=== PATIENT | female | born 1980 | race Caucasian/White ===

== ENCOUNTER 2019-06-11 09:41 | Outpatient (CLI) | payer OTHER, SELFPAY ==
--- NOTE | ~2019-06-11 | XR_ITS ---
EXAMINATION: XR lumbar puncture diagnostic DATE: 06/11/2019 11:58 INDICATION: Multiple sclerosis. TECHNIQUE: The procedure including the risks, benefits, and alternatives was discussed with the patie nt. Risks discussed included spinal headache, cerebrospinal fluid leak, bleeding, and infection. The patient understood the risks and agreed to proceed. A timeout was performed to verify the patient' s name, date of , and procedure to be performed. The skin overlying the L2-L3 level was prepped and draped in usual sterile fashion. Subcutaneous 1% lidocaine was used for local anesthesia. A 20 gauge spinal needle was advanced under fluoroscopic guidance. The needle was removed and the entry s ite was cleaned and dressed. There were no immediate complications. Fluoroscopy exposure time was 0. 1 minutes. The total number of images was 1. FINDINGS: Real-time fluoroscopy demonstrates the needle at the L2-L3 level. The opening pressure was 24 cm water (Normal range is variably defined as 6-20 cm water and up to 25 cm water in obese patient s. Pressure >25 cm water is one of the modified Dandy criteria for idiopathic intracranial hypertensi on). 14 mL of clear, colorless fluid was collected in 4 tubes. IMPRESSION: 1. Successful fluoro-guided lumbar puncture with opening pressure of 24 cm water. Reviewed, dictated and finalized at location A. EMS SPEC IMPRESSION: 1. Successful fluoro-guided lumbar puncture with opening pressure of 24 cm citlalye geovani
[2019-06-11 10:31] LABS: Mean Platelet Volume 9.6 fl (7.4-10.4); Platelet Count Result 346 k/mm3 (150-375)
[2019-06-11 10:41] LABS: Prothrombin Time 12.7 Seconds (11.1-14.7)
[2019-06-11 11:05] VITALS: BP 116/80; PULSE 85; RESP 17; O2SAT 98
[2019-06-11 11:25] VITALS: BP 120/79; PULSE 77; RESP 17; O2SAT 98
[2019-06-11 12:04] LABS: Appearance CSF Clear (Clear); CSF source CSF; Color CSF Colorless (Colorless); Nucleated Cell CSF 10 /uL (0-5); Red Blood Cell CSF 13 (0-2)
[2019-06-11 12:08] LABS: Lymphocytes CSF 100 % (40-80)
[2019-06-11 12:24] LABS: Glucose CSF 53 mg/dL (40-70); Total Protein CSF 40 mg/dL (12-60)
[2019-06-13 04:19] LABS: Angiotensin Converting Enzyme 35 U/L (9-67)
[2019-06-15 06:11] LABS: Albumin, CSF 18.8 mg/dL (8.0-42.0); Albumin, Serum 4.2 g/dL (3.5-5.2); IgG Index, CSF 0.96 (<0.66); IgG, CSF 4.8 mg/dL (0.8-7.7); Immunoglobulin G, Serum 1120 mg/dL (600-1640); Myelin Basic Protein, CSF <2.0 mcg/L (2.0-4.0)
[2019-06-17 11:24] LABS: Angiotensi Converting Enzy CSF 7 U/L (<=15)
== END 2019-06-11 09:42 | disposition home or self-care (01) ==
PROVIDERS: Visit Provider Psychiatry & Neurology Neurology
DX: G35 Multiple sclerosis (principal)
CPT/HCPCS: 36415; 62328; 82040; 82042; 82164; 82784; 82945; 83873; 83916; 84157; 85049; 85610; 87070; 88108; 89051

== ENCOUNTER 2021-10-07 08:05 | Emergency (ER) | payer OTHER, SELFPAY ==
--- NOTE | 2021-10-07 08:06 | ED.LOWEXIN ---
HPI - Extremity Injury (Lower) General Chief Complaint: Extremity Injury, Upper Stated Complaint: right knee popped Time Seen by Provider: 10/07/21 08:06 Source: patient Mode of arrival: ambulatory Limitations: no limitations History of Present Illness HPI Narrative: Ms. Warren is a 41-year-old female patient presenting to the clinic today with complaints of right knee pain/popping. She reports that her right knee pop last night after squatting down. States that she felt as though her knee popped out of place last night but that it popped back in. Has pain over the medial collateral ligament. Has some pain with weightbearing but worse with walking. Related Data Home Medications Medication Instructions Recorded Confirmed ibuprofen 800 mg tablet 800 mg PO Q6H PRN Pain 05/25/19 10/07/21 Allergies Allergy/AdvReac Type Severity Reaction Status Date / Time No Known Allergies Allergy Mild Verified 10/07/21 08:16 Review of Systems Review of Systems: Pertinent positives per HPI. Patient denies any fever, chills, rash, headache, visual changes, dizziness, cough, runny nose, sore throat, shortness of breath, chest pain, palpitations, nausea, vomiting, diarrhea, constipation, abdominal pain, or any urinary issues. PMFSH Social History Social History Smoking status: Current every day smoker Comments At the time of my signature, I reviewed and agree with the nursing past medical, surgical, social, and family history. There is no relevant family history pertinent to the patient complaint. Exam Narrative: General: Well-developed, well nourished, in no apparent distress Head: Normocephalic, atraumatic. Cardio: Regular rate and rhythm, s1 and s2 normal, no murmur appreciated. Resp: Clear to auscultation bilaterally, no rhonchi, rales, wheezing or rubs. Musculoskeletal: No deformity, tender to palpation over the right MCL, pain with flexion over the MCL, grossly normal range of motion, tenderness over the MCL with valgus/varus testing, muscle strength strong and equal, peripheral pulse strong, mild swelling to the right knee when compared to the left knee, no cyanosis, normal gait and station Course Course Emergency Course: Portions of this record may have been created with voice recognition software. Level of Care: Express Care Visit Vital Signs Vital signs: Vital signs reviewed MDM - Extremity Injury (Lower) MDM Narrative Medical decision making narrative: At the time of visit patient is resting comfortably sitting in the wheelchair. She has tenderness to palpation over the MCL with pain with flexion and extension over the MCL. Knee exam is negative for any signs of tear as anterior/posterior/valgus and varus testing are all negative for laxity. I suspect that the patient has an MCL sprain and will give a Raúl wrap and supportive measures were discussed. I recommend a hinged knee brace as this will give support for walking and weightbearing activity. Patient voiced understanding of discharge instructions and agrees to the treatment plan. I will also give her a prescription for some prednisone to help with swelling and inflammation. Differential Diagnosis Differential diagnosis: Likely acute internal derangement of knee and other (Right knee MCL sprain, medial meniscus tear, MCL tear) Discharge Plan Discharge Clinical Impression: Knee MCL sprain Patient Disposition: Home, Self-Care Condition: Stable Instructions: Knee Sprain (ED) Additional Instructions: Rest, ice, elevate, and compress Wear Raúl wrap as discussed May benefit from using a hinged knee brace with weightbearing and ambulating Tylenol/Motrin as needed for pain Take prednisone as prescribed Follow-up with your PCP in 3 to 5 days if symptoms persist or sooner if they worsen. May need MRI to rule out tendon tear or medial meniscus tear. Prescriptions: New prednisone
[2021-10-07 08:11] VITALS: BP 105/73; PULSE 90; RESP 14; TEMP 37; O2SAT 100
== END 2021-10-07 08:45 | disposition home or self-care (01) ==
PROVIDERS: Emergency Provider Nurse Practitioner Family
DX: S83.411A Sprain of medial collateral ligament of right knee, initial encounter (principal); X50.9XXA Other and unspecified overexertion or strenuous movements or postures, initial encounter; F17.200 Nicotine dependence, unspecified, uncomplicated; G35 Multiple sclerosis
CPT/HCPCS: 99213; G0463

== ENCOUNTER 2022-05-12 14:51 | Outpatient (CLI) | payer OTHER, SELFPAY ==
[2022-05-12 15:08] LABS: Basophils Absolute Auto 0.08 K/mm3 (0.00-0.10); Basophils Percent Auto 1.2 % (0.0-1.0); Eosinophils Absolute Auto 0.15 K/mm3 (0.02-0.50); Eosinophils Percent Auto 2.3 % (1.0-6.0); Hematocrit 41.9 % (35.0-49.0); Hemoglobin 14.8 g/dL (12.0-15.0); Immature Granulocyte Absolute 0.02 K/mm3 (0.00-0.00); Immature Granulocyte Percent A 0.3 % (0.0-0.0); Lymphocytes Absolute Auto 2.07 K/mm3 (1.10-4.50); Mean Corpuscular HGB Conc 35.3 g/dL (32.0-36.0); Mean Corpuscular Hemoglobin 33.9 pg (27.0-31.0); Mean Corpuscular Volume 95.9 fL (78.0-102.0); Mean Platelet Volume 9.6 fl (9.2-11.8); Monocytes Absolute Auto 0.41 K/mm3 (0.10-0.90); Monocytes Percent Auto 6.3 % (2.0-11.0); Neutrophils Absolute Auto 3.7 K/mm3 (1.7-7.2); Neutrophils Percent Auto 57.9 % (50.0-70.0); Platelet Count Result 340 K/mm3 (150-420); Red Blood Count 4.37 M/mm3 (4.20-5.40); Red Cell Distribution Width 11.6 % (11.6-14.4); White Blood Count 6.5 K/mm3 (4.8-10.8)
--- NOTE | 2022-05-12 15:23 | ECG_ITS ---
Measurements Intervals [place] Rate: 79 P: 59 [place]: 139 QRS: 42 QRSD: 76 T: 48 QT: 353 QTc: 406 Interpretive Statements SINUS RHYTHM POSSIBLE RIGHT ATRIAL ENLARGEMENT BORDERLINE ECG NO PREVIOUS ECG AVAILABLE FOR COMPARISON Electronically Signed On 05-12-2022 16:00:56 MECHANICAL SOUND TECHNICIAN by Joel Green D.O.
[2022-05-12 15:38] LABS: Alanine Aminotransferase 17 U/L (14-59); Albumin Level 4.1 g/dL (3.4-5.0); Alkaline Phosphatase 52 U/L (46-116); Anion Gap 9 mmol/L (8-16); Aspartate Amino Transferase 11 U/L (15-37); Bilirubin,Total 0.5 mg/dL (0.00-1.00); Blood Urea Nitrogen 7 mg/dL (7-18); Carbon Dioxide 26 mmol/L (21-32); Chloride 102 mmol/L (98-108); Estimated Glomerular Filt Rate > 60; Glucose 90 mg/dL (70-99); Osmolality Calculated 282 mOsm/kg (285-295); Potassium 4.3 mmol/L (3.5-5.1); Sodium 137 mmol/L (136-145); Total Protein 7.4 g/dL (6.4-8.2)
[2022-05-17 18:39] LABS: Varicella IgM Antibody <=0.90 (<=0.90)
== END 2022-05-12 14:52 | disposition home or self-care (01) ==
PROVIDERS: PCP Student in an Organized Health Care Education/Training Program; Visit Provider Student in an Organized Health Care Education/Training Program
DX: G35 Multiple sclerosis (principal)
CPT/HCPCS: 36415; 80053; 85025; 86787; 93005

== ENCOUNTER 2022-07-15 14:18 | Outpatient (CLI) | payer OTHER, SELFPAY ==
--- NOTE | ~2022-07-15 | MM_ITS ---
EXAMINATION: MM screening mikayla BI w alexis HISTORY: Screening mammogram TECHNIQUE: Craniocaudal and mediolateral oblique 3-D tomosynthesis images were obtained and synthetic 2-D images were generated. CAD analysis was submitted and interpreted. COMPARISON: No prior mammogram is available for comparison at this institution. BREAST PARENCHYMAL COMPOSITION:There are scattered areas of fibroglandular density. FINDINGS: Benign lymph nodes noted at the upper, outer left breast. No suspicious mass, calcification , or architectural distortion are identified in either breast to suggest malignancy. There has been n o suspicious interval change. IMPRESSION: No mammographic evidence of malignancy. Recommend routine screening mammography in one year. BI-RADS Category 2: Benign finding(s). Reviewed, dictated and finalized at location .
== END 2022-07-15 14:19 | disposition home or self-care (01) ==
LOC: CHSIMG 14:19
PROVIDERS: Visit Provider Obstetrics & Gynecology
DX: Z12.31 Encounter for screening mammogram for malignant neoplasm of breast (principal)
CPT/HCPCS: 77063; 77067

== ENCOUNTER 2023-02-12 09:40 | Outpatient (CLI) | payer OTHER, SELFPAY ==
--- NOTE | ~2023-02-12 | MR_ITS ---
EXAMINATION: MR cervical spine wo/w con DATE: 02/12/2023 10:54 INDICATION: Multiple sclerosis. TECHNIQUE: Magnetic resonance imaging (MRI) of the cervical spine was performed without and with 16 m L MultiHance intravenous contrast. COMPARISON: None FINDINGS: There is 5 degrees levocurvature of cervicothoracic spine. There is hypolordosis of cervica l spine. Vertebral body heights and intervertebral disc heights are normal. There is a lesion of incr eased T2-weighted signal intensity in the spinal cord on the left at C2-C3. There is a lesion of incr eased T2-weighted signal intensity in the spinal cord on the right at C4-C5. No contrast enhancement. The following disc levels are specifically discussed: C2-C3: The disc does not extend beyond the endplate margin. There is no uncovertebral joint osteoarth ritis. There is mild left facet joint osteoarthritis. There is no neural foraminal stenosis. There is no central canal stenosis. C3-C4: The disc does not extend beyond the endplate margin. There is mild left uncovertebral joint os teoarthritis. There is no facet joint osteoarthritis. There is no neural foraminal stenosis. There is no central canal stenosis. C4-C5: The disc does not extend beyond the endplate margin. There is no uncovertebral joint osteoarth ritis. There is mild bilateral facet joint osteoarthritis. There is no neural foraminal stenosis. The re is no central canal stenosis. C5-C6: The disc does not extend beyond the endplate margin. There is mild left uncovertebral joint os teoarthritis. There is no facet joint osteoarthritis. There is no neural foraminal stenosis. There is no central canal stenosis. C6-C7: There is a central protrusion. There is no uncovertebral joint osteoarthritis. There is no fac et joint osteoarthritis. There is no neural foraminal stenosis. There is no central canal stenosis. C7-T1: The disc does not extend beyond the endplate margin. There is no uncovertebral joint osteoarth ritis. There is moderate right and mild left facet joint osteoarthritis. There is mild right neural f oraminal stenosis. There is no central canal stenosis. IMPRESSION: 1. Spinal cord lesions, consistent with multiple sclerosis. 2. Mild cervical spondylosis. Reviewed, dictated and finalized at location A.
== END 2023-02-12 09:41 | disposition home or self-care (01) ==
PROVIDERS: Visit Provider Student in an Organized Health Care Education/Training Program
DX: G35 Multiple sclerosis (principal); M47.892 Other spondylosis, cervical region
CPT/HCPCS: 72156; A9577

== ENCOUNTER 2023-02-13 09:38 | Outpatient (CLI) | payer OTHER, SELFPAY ==
--- NOTE | ~2023-02-13 | MR_ITS ---
EXAMINATION: MR brain/brain stem wo/w con DATE: 02/13/2023 10:46 INDICATION: Multiple sclerosis. TECHNIQUE: Magnetic resonance imaging (MRI) of the brain and brainstem was performed without and with 16 mL MultiHance intravenous contrast. COMPARISON: None. FINDINGS: There is increased T2-weighted signal intensity in the right peritrigonal white matter asso ciated with brain volume loss. There are a few other scattered lesions of increased T2-weighted signa l intensity involving the cerebral white matter with a periventricular predominance. There are lesion s of increased T2-weighted signal intensity in right cerebral peduncle and the right side of the damaso . There is no abnormal contrast enhancement. There is no intracranial hemorrhage or acute ischemic in farct. There is mild ex vacuo dilatation of trigone of right lateral ventricle. The orbits are normal . The mastoid air cells are normal. There is mild mucosal thickening in the ethmoid sinuses. IMPRESSION: 1. White matter lesions, consistent with multiple sclerosis. Reviewed, dictated and finalized at location A.
== END 2023-02-13 09:39 | disposition home or self-care (01) ==
PROVIDERS: Visit Provider Student in an Organized Health Care Education/Training Program
DX: G35 Multiple sclerosis (principal)
CPT/HCPCS: 70553; A9577

== ENCOUNTER 2023-02-19 09:05 | Outpatient (CLI) | payer OTHER, SELFPAY ==
--- NOTE | ~2023-02-19 | MR_ITS ---
MRI of the thoracic spine Clinical History: Multiple sclerosed Technique: Axial T2-weighted and gradient images, and sagittal T1-weighted, T2-weighted, and STIR armida ges were acquired. Following intravenous administration of 10 cc MultiHance gadolinium, T1-weighted f at-sat imaging was performed in the axial and sagittal planes. Findings: There is no fracture or subluxation of the thoracic spine. Vertebral bodies maintain normal height and alignment. No bone marrow signal abnormality seen. No disc bulge or herniation identified in the thoracic spine. No spinal canal stenosis or cord compre ssion identified. No epidural mass or collection seen. No abnormal signal seen in the spinal cord itself. Paravertebral soft tissues are unremarkable. No ab normal postcontrast enhancement. Impression: No significant abnormality seen. Reviewed, dictated and finalized at [facility] [place]. Impression: No significant abnormality seen.
== END 2023-02-19 09:06 | disposition home or self-care (01) ==
LOC: CHSIMG 09:06
PROVIDERS: Visit Provider Student in an Organized Health Care Education/Training Program
DX: G35 Multiple sclerosis (principal)
CPT/HCPCS: 72157; A9577

== ENCOUNTER 2023-03-07 15:56 | Outpatient (RCR) | payer OTHER, SELFPAY ==
--- NOTE | 2023-03-08 08:19 | OPREHPOC ---
Outpatient Therapy Plan of Care This is a Multidisciplinary Plan of Care that may contain components documented by all disciplines (PT, OT, and ST.) PT Problem 1 PT Problem #1 Knowledge Deficit PT Goal 1 Goal Patient to demonstrate independence with HEP Target Visit 6 PT Problem 2 PT Problem #2 Impaired Range of Motion PT Goal 1 Goal Patient to demonstrate 140 deg of active L knee flexion to improve ability to navigate stairs Target Visit 12 PT Problem 3 PT Problem #3 Impaired Strength PT Goal 1 Goal Patient to demonstrate 5/5 L hip flexion and knee strength to return to prolonged ambulation at PLOF Target Visit 12 PT Problem 4 PT Problem #4 Impaired Functional Mobil PT Goal 1 Goal 1. Patient to report ability to get into vehicle without use of UE to lift L LE into car. 2. Patient to complete 6 min walk test with no seated rest breaks 3. Patient to ambulation with no AD and adequate knee flexion through swing phase to decrease toe drag Target Visit 12
--- NOTE | 2023-03-08 08:20 | PTOPEVAL1 ---
Assessment and note entered by Irma Hilliard DPT Evaluation Information Assessment Status Evaluation Diagnosis balance, L LE weakness Onset 02/24/23 Subjective Information Patient reports she was diagnosed with MS in May. She reports she has progressively gotten weaker and her balance has decreased. She reports she uses a cane or a rollator outside of the home. She has had one fall about a year ago. She reports her L LE is weaker than R and she has decreased balance. She also reports she feels like her core is weak. She reports difficulty with getting into bed, walking, stair navigation, and heavy house hold tasks. Reported Pain Level Pain Score 0: Self Report Pain Score 0: Self Report Assessment PT Clinical Summary Patient is a 42 year old female who presents to PT with L LE weakness and impaired balance. Patient demonstrates decreased L LE strength, impaired balance and impaired gait mechanincs impairing her ability to ambulate, complete house hold tasks and navigate steps. She would benefit from skilled PT to address impairments and return to PLOF. Plan of Care Interventions Gait Training,Hot Pack/Cold Pack,Manual Therapy, Mechanical Traction,Neuro Re-education,Patient/ Caregiver Educati,Therapeutic Activities, Therapeutic Exercise PT Services Indicated Yes Treatment Frequency and 2x weekly for 12 visits Duration These treatments will address the objective and functional deficits as defined above. The patient will be advanced safely and appropriately in order for the patient to progress towards his/her prior level of function. Additional exercises will be introduced and as well as a comprehensive home exercise program upon discharge, if needed, ?to ensure carryover of functional gains achieved in the clinic. This treatment plan has been reviewed and agreement upon by the patient.
--- NOTE | 2023-03-11 10:58 | BUOTOPEVAL ---
Assessment and note entered by Rody Lewis OT Evaluation Information Assessment Status Evaluation Diagnosis Multiple sclerosis Onset 02/24/23 Subjective Information The patient stated that she gets discouraged from not being able to use her L hand and it has taken a huge toll on her everyday life. The patient reports severe fatigue following a work day and in spaces where there is a lot of lights and loud noises. She stated she needs help with homemaking tasks and caring for her children due to fatigue. 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 Reported Pain Level Pain Score 0: Self Report Pain Score 0: Self Report Assessment OT Clinical Summary The patient is a 42 year old female who was referred to outpatient OT due to multiple sclerosis resulting in L sided weakness and low endurance. The patient demonstrates severely impaired fine motor coordination, AROM of L UE, machine assistant/pinch strength, and minimal edema of L hand which affect her ability to perform work tasks, engage in caring for family and performing ADLs. The patient demonstrates significant weakness and endurance deficits in L UE and in overall activity tolerance. The patient requires skilled OT to address these deficits and improve ability to perform daily tasks with maximal amount of independence. Plan of Care Interventions Therapeutic Exercise,Manual Therapy,Neuro Re- education,Therapeutic Activities,Hot Pack/Cold Pack,Electrical Stimulation,Sensory Integrative Techn,Self-Care/Home Management OT Services Indicated Yes Treatment Frequency and 2x/week for 10 visits. Duration These treatments will address the objective and functional deficits as defined above. The patient will be advanced safely and appropriately in order for the patient to progress towards his/her prior level of function. Additional exercises will be introduced and as well as a comprehensive home exercise program upon discharge, if needed, ?to ensure carryover of functional gains achieved in the clinic. This treatment plan has been reviewed and agreement upon by the patient.
--- NOTE | 2023-04-22 11:09 | OPREHPOC ---
Outpatient Therapy Plan of Care This is a Multidisciplinary Plan of Care that may contain components documented by all disciplines (PT, OT, and ST.) PT Problem 1 PT Problem #1 Knowledge Deficit PT Goal 1 Goal Patient to demonstrate independence with HEP Target Visit 6 Progress Met PT Problem 2 PT Problem #2 Impaired Range of Motion PT Goal 1 Goal Patient to demonstrate 140 deg of active L knee flexion to improve ability to navigate stairs Target Visit 12 Progress Met PT Problem 3 PT Problem #3 Impaired Strength PT Goal 1 Goal Patient to demonstrate 5/5 L hip flexion and knee strength to return to prolonged ambulation at PLOF Target Visit 12 Progress Partially Met PT Problem 4 PT Problem #4 Impaired Functional Mobil PT Goal 1 Goal 1. Patient to report ability to get into vehicle without use of UE to lift L LE into car. 2. Patient to complete 6 min walk test with no seated rest breaks 3. Patient to ambulation with no AD and adequate knee flexion through swing phase to decrease toe drag Target Visit 12 Progress Met OT Problem 1 OT Problem #1 Knowledge Deficit OT Goal 1 Goal The patient will demonstrate 100% knowledge and demonstration of UE HEP in order to improve and maintain UE strength. Target Visit 10 OT Problem 2 OT Problem #2 Impaired Strength OT Goal 1 Goal The patient will demonstrates increase mcat tutor/pinch strength demonstrating >20 lbs of mcat tutor strength of L hand and >3 lbs of lateral pinch strength of L hand in order to open and close hand to manipulate items throughout her day. Target Visit 10 OT Goal 2 Goal The patient will demonstrate increased UE strength of L arm by demonstrating 4+/5 strength of L elbow flexion/extension and internal/external rotation of shoulder needed to lift items to care for her family. Target Visit 10 OT Problem 3 OT Problem #3 Impaired Range of Motion
--- NOTE | 2023-04-22 11:10 | PTOPDC ---
Assessment and note entered by Irma Hilliard DPT Evaluation Information Assessment Status Re-evaluation Diagnosis balance, L LE weakness Onset 02/24/23 Subjective Information Patient reports she has noticed improved walking since start of PT. She reports she has not been using an AD. She reports she has been independent with HEP. Reported Pain Level Pain Score 0: Self Report Assessment PT Clinical Summary Mrs. Warren has been seen for 10 visits of skilled PT with all goals met or partially met. She has been able to return to ambulating without AD and had not had any falls since start of care. She reports she has been independent with HEP. She is appropriate for DC at this time. Plan of Care PT Services Indicated No
== END 2023-04-22 20:00 | disposition home or self-care (01) ==
LOC: CHSPT 15:56
PROVIDERS: Visit Provider Student in an Organized Health Care Education/Training Program
DX: G35 Multiple sclerosis (principal)
CPT/HCPCS: 97110; 97112; 97140; 97161; 97166; 97530

== ENCOUNTER 2023-10-03 12:52 | Outpatient (CLI) | payer OTHER, SELFPAY ==
[2023-10-03 13:23] LABS: Basophils Absolute Auto 0.08 K/mm3 (0.00-0.10); Basophils Percent Auto 1.1 % (0.0-1.0); Eosinophils Absolute Auto 0.28 K/mm3 (0.02-0.50); Eosinophils Percent Auto 3.8 % (1.0-6.0); Hematocrit 44.4 % (35.0-49.0); Hemoglobin 15.2 g/dL (12.0-15.0); Immature Granulocyte Absolute 0.03 K/mm3 (0.00-0.00); Immature Granulocyte Percent A 0.4 % (0.0-0.0); Lymphocytes Absolute Auto 1.35 K/mm3 (1.10-4.50); Lymphocytes Percent Auto 18.4 % (18.0-42.0); Mean Corpuscular HGB Conc 34.2 g/dL (32-36); Mean Corpuscular Volume 96.3 fL (78.0-102.0); Mean Platelet Volume 9.5 fl (9.2-11.8); Monocytes Absolute Auto 0.54 K/mm3 (0.10-0.90); Monocytes Percent Auto 7.4 % (2.0-11.0); Neutrophils Absolute Auto 5.05 K/mm3 (1.70-7.20); Neutrophils Percent Auto 68.9 % (50.0-70.0); Platelet Count Result 359 K/mm3 (150-420); Red Blood Count 4.61 M/mm3 (4.20-5.40); Red Cell Distribution Width 11.9 % (11.6-14.4); White Blood Count 7.3 K/mm3 (4.8-10.8)
[2023-10-03 13:32] LABS: Appearance Urine Clear (Clear); Bilirubin Urine Negative (Negative); Blood Urine Negative (Negative); Color Urine Yellow (Yellow); Glucose Urine UA Negative (Negative); Ketones Urine Negative (Negative); Leukocyte Esterase Ur Negative (Negative); Nitrate Urine Negative (Negative); Protein Urine Negative (Negative)
[2023-10-03 13:35] LABS: Add Urine Microscopic? YES; Bacteria Urine None seen /hpf; RBC Urine None seen /hpf (0-2); Squamous Epithelial Cell Urine None seen /hpf (Few); WBC Urine None seen /hpf (0-3)
[2023-10-03 13:45] LABS: Alanine Aminotransferase 20 U/L (14-59); Albumin Level 4.1 g/dL (3.4-5.0); Alkaline Phosphatase 48 U/L (46-116); Anion Gap 9 mmol/L (4-12); Aspartate Amino Transferase 15 U/L (15-37); Bilirubin,Total 0.6 mg/dL (0.00-1.00); Blood Urea Nitrogen 8 mg/dL (7-18); Calcium 8.8 mg/dL (8.5-10.1); Carbon Dioxide 27 mmol/L (21-32); Chloride 102 mmol/L (98-108); Estimated Glomerular Filt Rate > 60; Glucose 84 mg/dL (70-99); Osmolality Calculated 283 mOsm/kg (285-295); Sodium 138 mmol/L (136-145); Total Protein 7.5 g/dL (6.4-8.2)
[2023-10-03 14:01] LABS: HIV 1 P24 AG Negative (Negative); HIV 1/2 AB Negative (Negative)
[2023-10-04 10:44] LABS: Immunoglobulin A 350 mg/dL (47-310); Immunoglobulin G 1107 mg/dL (600-1640); Immunoglobulin M 105 mg/dL (50-300)
[2023-10-04 11:39] LABS: Vitamin D 25 Hydroxy 40 ng/mL (30-100)
[2023-10-04 16:38] LABS: Hepatitis A Antibody IgM NON-REACTIVE (NON-REACTIVE); Hepatitis B Core Antibody NON-REACTIVE (NON-REACTIVE); Hepatitis B Surface Antigen NON-REACTIVE (NON-REACTIVE)
[2023-10-04 16:48] LABS: Hepatitis C Virus Antibody NON-REACTIVE (NON-REACTIVE)
[2023-10-05 13:54] LABS: NIL 0.02 IU/mL; Quantiferon TB Plus, 1T NEGATIVE (NEGATIVE)
== END 2023-10-03 12:53 | disposition home or self-care (01) ==
PROVIDERS: PCP Student in an Organized Health Care Education/Training Program; Visit Provider Student in an Organized Health Care Education/Training Program
DX: G35 Multiple sclerosis (principal); Z79.899 Other long term (current) drug therapy
CPT/HCPCS: 36415; 80053; 80074; 81001; 82306; 82784; 85025; 86480; 86787; 87806

== ENCOUNTER 2023-10-15 19:06 | Emergency (ER) | payer OTHER, SELFPAY ==
--- NOTE | ~2023-10-15 | XR_ITS ---
XR chest 1V portable Ordering provider: Yuan Desai MD History: 43 years Female with . SHORTNESS OF BREATH. LEFT SIDE CHEST PAIN. . Comparison: None. FINDINGS: MEDIASTINUM: The cardiac silhouette is not enlarged. LUNGS: No effusions or pneumothorax. Opacification in the mid and lower zone is seen bilaterally more on the left side suggestive of pneumonia. Follow-up advised. Prominent markings seen bilaterally. OTHER: No free air under the diaphragm. IMPRESSION: Bilateral pneumonia more on the left side. Reviewed, dictated and finalized at location A.
[2023-10-15 19:14] VITALS: BP 138/94; PULSE 91; RESP 18; TEMP 36.7; O2SAT 98
[2023-10-15] MEDS: ORPHENADRINE CITRATE 30 MG/ML 2 ML VIAL 60 MG IM (19:18)
[2023-10-15] MEDS: KETOROLAC (*BKC) 60 MG/2 ML VIAL IM (19:18)
--- NOTE | 2023-10-15 19:24 | PC.NURSE ---
patient is resting on stretcher with her at her side. call light is in reach.
--- NOTE | 2023-10-15 19:33 | ED.GENADULT ---
HPI - General Adult General Chief complaint: Unspecified Stated complaint: Neck/Rib Pain Time Seen by Provider: 10/15/23 19:07 Source: patient and family Mode of arrival: ambulatory Limitations: no limitations History of Present Illness HPI narrative: this is a 43-year-old female with history of multiple sclerosis presents with left-sided neck stiffness and left-sided muscle pain that is tender with movement and palpable patient no injury for chills no shortness of breath no chest pain pain no abdominal pain no nausea vomiting or diarrhea constipation. Onset (ago): hour(s) Location: neck and back Severity: moderate Severity scale (1-10): 6 Quality: aching Pain Consistency: constant Related Data Allergies Allergy/AdvReac Type Severity Reaction Status Date / Time No Known Allergies Allergy Mild Verified 09/20/23 09:38 Review of Systems Review of Systems: All systems reviewed & are unremarkable except as noted in HPI and below PMFSH Past Medical History Medical History Multiple sclerosis Social History Social History Social History: current smoker Smoking packs per day: 1 Smoking cigarettes per day: 20.0 Years smoked: 25 Smoking pack-years: 25.00 Smoking status: Current every day smoker Tobacco type: cigarettes Alcohol intake: former Alcohol use details: No alcohol in one year Substance use: never Substance use type: does not use Do You Feel Safe in your Home?: Yes Lack of Transportation: No Lack of Food: Never True Current Housing: I Have Housing Concerned About Future Housing: No Difficulty Paying Gas/Electric Bills: No Difficulty Paying for Meds: No Currently Unemployed: No Education: High School Diploma/GED Difficulty w/ Childcare or Family Care: No Exam Const: General: cooperative, healthy appearing, comfortable, no acute distress and well developed HENMT: Head: normal to inspection Neck: Neck: normal visual inspection, full ROM and no lymphadenopathy Chest: Chest palpation & inspection: normal inspection of the chest and localized rib tenderness with anteroposterior compression Resp: Effort & Inspection: normal respiratory effort and able to speak in complete sentences Auscultation: clear to auscultation bilaterally Cardio: Jugular venous distension: no JVD Palpation: normal PMI Rate: regular rate Rhythm: regular rhythm : General: Yes bimanual renal exam normal bilaterally Neuro: General: oriented to person, oriented to place, oriented to time and patient oriented x3 Extrem: General: normal to inspection and full ROM Other: Neck stiffness with movement and palpation Course Course Emergency Course: patient received Toradol IM 60mg along with 60mg IM muscle relaxer to chest x-ray performed shows no acute abnormalities. Vital Signs Vital signs: Vital Signs Temperature 36.7 C 10/15/23 19:14 Pulse Rate 91 10/15/23 19:14 Respiratory Rate 18 10/15/23 19:14 Blood Pressure 138/94 H 10/15/23 19:14 Pulse Oximetry 98 10/15/23 19:14 Oxygen Delivery Room Air 10/15/23 19:14 Temperature 36.7 C 10/15/23 19:14 Pulse Rate 78 10/15/23 21:39 Respiratory Rate 16 10/15/23 21:39 Blood Pressure 122/70 10/15/23 21:39 Pulse Oximetry 98 10/15/23 21:39 Oxygen Delivery Room Air 10/15/23 21:39 Medical Decision Making Vital Signs Vital Signs: Vital Signs Temperature 36.7 C 10/15/23 19:14 Pulse Rate 91 10/15/23 19:14 Respiratory Rate 18 10/15/23 19:14 Blood Pressure 138/94 H 10/15/23 19:14 Pulse Oximetry 98 10/15/23 19:14 Oxygen Delivery Room Air 10/15/23 19:14 Temperature 36.7 C 10/15/23 19:14 Pulse Rate 78 10/15/23 21:39 Respiratory Rate 16 10/15/23 21:39 Blood Pressure 122/70 10/15/23 21:39 Pulse Oximetry 98 10/15/23 21:39 Oxygen Delivery Room Air
[2023-10-15 20:06] LABS: Basophils Absolute Auto 0.08 K/mm3 (0.00-0.10); Basophils Percent Auto 0.7 % (0.0-1.0); Eosinophils Absolute Auto 0.24 K/mm3 (0.02-0.50); Eosinophils Percent Auto 2.2 % (1.0-6.0); Hematocrit 43.3 % (35.0-49.0); Immature Granulocyte Absolute 0.03 K/mm3 (0.00-0.00); Immature Granulocyte Percent A 0.3 % (0.0-0.0); Lymphocytes Absolute Auto 0.82 K/mm3 (1.10-4.50); Lymphocytes Percent Auto 7.5 % (18.0-42.0); Mean Corpuscular HGB Conc 34.6 g/dL (32-36); Mean Corpuscular Hemoglobin 33.4 pg (27.0-31.0); Mean Corpuscular Volume 96.4 fL (78.0-102.0); Mean Platelet Volume 9.6 fl (9.2-11.8); Monocytes Absolute Auto 0.91 K/mm3 (0.10-0.90); Monocytes Percent Auto 8.3 % (2.0-11.0); Neutrophils Absolute Auto 8.86 K/mm3 (1.70-7.20); Platelet Count Result 341 K/mm3 (150-420); Red Blood Count 4.49 M/mm3 (4.20-5.40); Red Cell Distribution Width 11.8 % (11.6-14.4); White Blood Count 10.9 K/mm3 (4.8-10.8)
[2023-10-15] MEDS: SODIUM CHLORIDE 0.9% IV 1,000 ML 999 ML IV CONT (20:06)
--- NOTE | 2023-10-15 20:14 | PC.NURSE ---
bedside commode placed at the bedside. patient has call light. at the bedside
[2023-10-15 20:21] LABS: Alanine Aminotransferase 12 U/L (14-59); Albumin Level 3.5 g/dL (3.4-5.0); Alkaline Phosphatase 42 U/L (46-116); Anion Gap 9 mmol/L (4-12); Aspartate Amino Transferase 13 U/L (15-37); Bilirubin,Total 0.5 mg/dL (0.00-1.00); Blood Urea Nitrogen 7 mg/dL (7-18); Calcium 8.6 mg/dL (8.5-10.1); Carbon Dioxide 27 mmol/L (21-32); Chloride 105 mmol/L (98-108); Estimated CRCL calculation 98 ml/min; Estimated Glomerular Filt Rate > 60; Glucose 86 mg/dL (70-99); Osmolality Calculated 289 mOsm/kg (285-295); Potassium 3.6 mmol/L (3.5-5.1); Sodium 141 mmol/L (136-145); Total Protein 7.2 g/dL (6.4-8.2)
[2023-10-15 20:24] LABS: Lactic Acid Reflex 0.7 mmol/L (0.4-2.0)
--- NOTE | 2023-10-15 20:25 | PC.NURSE ---
ER provider at the bedside
[2023-10-15] MEDS: AZITHROMYCIN 500 MG/NS 250 ML 500 MG/250 ML BAG 250 MG IVPB (20:37)
--- NOTE | 2023-10-15 20:44 | PC.NURSE ---
patient ambulated to the bathroom with her walker and back to room. warm blankets were given. call light is in reach. Antibiotic and NS infusing without difficulty to right forearm. Site without redness or swelling.
[2023-10-15 21:39] VITALS: BP 122/70; PULSE 78; RESP 16; O2SAT 98
--- NOTE | 2023-10-22 13:52 | PC.NURSE ---
Final blood culture report, no growth after 5 days, no further action or treatment needed at this time.
== END 2023-10-15 21:48 | disposition home or self-care (01) ==
PROVIDERS: Emergency Provider Emergency Medicine; PCP Student in an Organized Health Care Education/Training Program
DX: J18.9 Pneumonia, unspecified organism (principal); G35 Multiple sclerosis; F17.210 Nicotine dependence, cigarettes, uncomplicated
CPT/HCPCS: 36415; 71045; 80053; 83605; 85025; 87040; 96365; 96367; 96372; 99284; J0456; J0696; J1885; J2360; J7030

== ENCOUNTER 2023-10-22 07:44 | Outpatient (CLI) | payer OTHER, SELFPAY ==
[2023-10-22 09:09] LABS: Basophils Absolute Auto 0.06 K/mm3 (0.00-0.10); Basophils Percent Auto 0.9 % (0.0-1.0); Eosinophils Absolute Auto 0.42 K/mm3 (0.02-0.50); Eosinophils Percent Auto 6.3 % (1.0-6.0); Hematocrit 42.6 % (35.0-49.0); Hemoglobin 14.5 g/dL (12.0-15.0); Immature Granulocyte Absolute 0.04 K/mm3 (0.00-0.00); Immature Granulocyte Percent A 0.6 % (0.0-0.0); Lymphocytes Absolute Auto 0.86 K/mm3 (1.10-4.50); Lymphocytes Percent Auto 12.9 % (18.0-42.0); Mean Corpuscular Hemoglobin 32.6 pg (27.0-31.0); Mean Corpuscular Volume 95.7 fL (78.0-102.0); Mean Platelet Volume 9.5 fl (9.2-11.8); Monocytes Absolute Auto 0.52 K/mm3 (0.10-0.90); Monocytes Percent Auto 7.8 % (2.0-11.0); Neutrophils Absolute Auto 4.76 K/mm3 (1.70-7.20); Neutrophils Percent Auto 71.5 % (50.0-70.0); Platelet Count Result 443 K/mm3 (150-420); Red Blood Count 4.45 M/mm3 (4.20-5.40); Red Cell Distribution Width 11.6 % (11.6-14.4); White Blood Count 6.7 K/mm3 (4.8-10.8)
[2023-10-22 09:28] LABS: Alanine Aminotransferase 10 U/L (14-59); Albumin Level 3.4 g/dL (3.4-5.0); Alkaline Phosphatase 46 U/L (46-116); Anion Gap 10 mmol/L (4-12); Aspartate Amino Transferase 14 U/L (15-37); Bilirubin,Total 0.5 mg/dL (0.00-1.00); Blood Urea Nitrogen 5 mg/dL (7-18); Calcium 8.7 mg/dL (8.5-10.1); Carbon Dioxide 24 mmol/L (21-32); Chloride 103 mmol/L (98-108); Cholesterol 178 mg/dL (0-200); Estimated Glomerular Filt Rate > 60; Glucose 90 mg/dL (70-99); HDL Direct 34 mg/dL (40-60); LDL Cholesterol Calculated 118 mg/dL (<130); Osmolality Calculated 281 mOsm/kg (285-295); Potassium 3.6 mmol/L (3.5-5.1); Sodium 137 mmol/L (136-145); Total Protein 7.4 g/dL (6.4-8.2); Triglycerides 132 mg/dL (0-150)
== END 2023-10-22 07:45 | disposition home or self-care (01) ==
PROVIDERS: PCP Family Medicine; Visit Provider Registered Nurse
DX: Z13.220 Encounter for screening for lipoid disorders (principal); Z13.1 Encounter for screening for diabetes mellitus
CPT/HCPCS: 36415; 80053; 80061; 85025

== ENCOUNTER 2024-02-08 12:20 | Outpatient (CLI) | payer OTHER, SELFPAY ==
--- NOTE | ~2024-02-08 | MM_ITS ---
EXAMINATION: MM screening mikayla BI w alexis HISTORY: Screening TECHNIQUE: Craniocaudal and mediolateral oblique 3-D tomosynthesis images were obtained and synthetic 2-D images were generated. CAD analysis was submitted and interpreted. COMPARISON: 07/15/2022 BREAST PARENCHYMAL COMPOSITION: Not dense: There are scattered areas of fibroglandular density. FINDINGS: There is no evidence of suspicious mass, calcification, or architectural distortion to sugg est malignancy in either breast. There has been no suspicious interval change. IMPRESSION: 1. No mammographic evidence of malignancy. 2. Recommend routine screening mammography in one year. BI-RADS Category 1: Negative Reviewed, dictated and finalized at location B.
== END 2024-02-08 12:21 | disposition home or self-care (01) ==
LOC: CHSIMG 12:22
PROVIDERS: PCP Family Medicine; Visit Provider Obstetrics & Gynecology
DX: Z12.31 Encounter for screening mammogram for malignant neoplasm of breast (principal)
CPT/HCPCS: 77063; 77067

== ENCOUNTER 2024-07-11 11:44 | Outpatient (CLI) | payer OTHER, SELFPAY ==
[2024-07-11 11:56] LABS: Basophils Absolute Auto 0.09 K/mm3 (0.00-0.10); Basophils Percent Auto 1.1 % (0.0-1.0); Eosinophils Absolute Auto 0.26 K/mm3 (0.02-0.50); Eosinophils Percent Auto 3.1 % (1.0-6.0); Hematocrit 42.8 % (35.0-49.0); Hemoglobin 14.6 g/dL (12.0-15.0); Immature Granulocyte Absolute 0.03 K/mm3 (0.00-0.00); Immature Granulocyte Percent A 0.4 % (0.0-0.0); Lymphocytes Absolute Auto 1.82 K/mm3 (1.10-4.50); Lymphocytes Percent Auto 21.7 % (18.0-42.0); Mean Corpuscular HGB Conc 34.1 g/dL (32-36); Mean Corpuscular Volume 96.8 fL (78.0-102.0); Mean Platelet Volume 9.1 fl (9.2-11.8); Monocytes Absolute Auto 0.46 K/mm3 (0.10-0.90); Monocytes Percent Auto 5.5 % (2.0-11.0); Neutrophils Absolute Auto 5.73 K/mm3 (1.70-7.20); Neutrophils Percent Auto 68.2 % (50.0-70.0); Platelet Count Result 420 K/mm3 (150-420); Red Blood Count 4.42 M/mm3 (4.20-5.40); Red Cell Distribution Width 11.7 % (11.6-14.4); White Blood Count 8.4 K/mm3 (4.8-10.8)
[2024-07-11 12:56] LABS: Alanine Aminotransferase 19 U/L (14-59); Albumin Level 3.9 g/dL (3.4-5.0); Alkaline Phosphatase 64 U/L (46-116); Anion Gap 6 mmol/L (4-12); Aspartate Amino Transferase 12 U/L (15-37); Bilirubin,Total 0.6 mg/dL (0.00-1.00); Blood Urea Nitrogen 10 mg/dL (7-18); Calcium 9.2 mg/dL (8.5-10.1); Carbon Dioxide 30 mmol/L (21-32); Chloride 106 mmol/L (98-108); Estimated Glomerular Filt Rate > 60; Glucose 88 mg/dL (70-99); Osmolality Calculated 292 mOsm/kg (285-295); Potassium 4.9 mmol/L (3.5-5.1); Sodium 142 mmol/L (136-145); Total Protein 7.3 g/dL (6.4-8.2)
--- OUTSIDE RECORDS SUMMARY | 2024-07-11 13:30 | XMS_ITS | Encounter Summary ---
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
--- OUTSIDE RECORDS SUMMARY | 2024-07-11 13:30 | XMS_ITS | Clinical Summary ---
Author Organization [facility] Address [address] [place] [id number] Care Team Providers Care Supervisor Drying And Winding Name Role Phone None, Provider MD Primary Care Provider Unavaila ble Allergies No known active allergies Medications Diroximel Fumarate 231 MG CAPSULE DELAYED RELEASE Acti ve Active Problems Problem Noted Date Diagnosed Date Effusion of right knee 11/05/2021 Antalgic gait 11/05/2021 Patellofemoral pain syndrome of right knee 11/05 Family History Medical History Relation Comments No Known Problems Brother 1 No Known Problems Brother 2 No Known Problems Brother 3 No Known Problems Brother 4 Heart Attack Father Stroke Father Hypertension Mother No Known Problems Sister 1 No Known Problems Sister 2 No Known Problems Sister 3 No Known Problems Sister 4 No Known Problems Sister 5 No Known Problems Sister 6 No Known Problems Sister 7 No Known Problems Sister 8 Relation Status Comments Brother 1 Alive Brother 2 Alive Brother 3 Alive Brother 4 Alive Father Alive Mother Alive Sister 1 Alive Sister 2 Alive Sister 3 Alive Sister 4 Alive Sister 5 Alive Sister 6 Alive Sister 7 Alive Sister 8 Alive Social History Tobacco Use Types Packs/Day Years Used Date Smoking Tobacco: Every Day Cigarettes 1 29.2 Started: 1995 Smokeless Tobacco: Never Alcohol Use Standard Drinks/Week Comments Yes 0 (1 standard drink = 0.6 oz pur e alcohol) Rare Comments Unknown Sex and Gender Information Value Date Recorded Sex Assigned at Not on file 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 Gender Identity Not on file Sexual Orientation Not on file Last Filed Vital Signs Vital Sign Reading Time Taken Comments Blood Pressure - - Pulse - - Temperature - - Respiratory Rate - - Oxygen Saturation - - Inhaled Oxygen Concentration - - Weight 79.4 kg (175 lb) 12/03/2021 8:46 AM CDT Height 172.7 cm (5' 8 ) 12/03/2021 8:46 AM CDT Body Mass Index 26.61 12/03/2021 8:46 AM CDT Plan of Treatment Health Maintenance Due Date Last Done Comments Cervical Cancer Screening Pap Smear (Age 30 to 64) Every 3 Years 1982 Annual Physical 1985 Pneumococcal Vaccine: Pediatrics (0 to 5 Years) and At-Risk Patients (6 to 64 Years) (1 of 2 - PCV) 1988 DTaP, Tdap and Td Vaccines (5 - Tdap) 02/12/1999 02/11/1999, 12/07/1988, 08/12/1987, Additional history exists Hepatitis C 2000 Hepatitis B Vaccines (1 of 3 - 19+ 3-dose series) 2001 Cervical Cancer Screening Pap with HPV Testing (Age 30 to 64) Every 5 Years 2012 Cervical Cancer Screening with HPV 2012 Mammogram Screening 2022 COVID-19 Vaccine ( - season) 2024 07/24/2020, 07/01/2020 Influenza Adult (#1) 2024 01/30/2021, 01/13/2020, 01/30/2019, Additional history exists HPV Vaccines Aged Out No longer eligi ble based on patient's age to complete this topic Meningococcal B Vaccine Aged Out No l onger eligible based on patient's age to complete this topic Meningococcal Vaccine Aged Out No cassidy jaxson eligible based on patient's age to complete this topic RSV Immunizations Under 20 Months Aged Out No longer eligible based on patient's age to complete this topic Insurance Care Teams Supervisor Drying And Winding Relationship Specialty Start Date End Date None, Provider, PCP - General 10/22/21
== END 2024-07-11 11:45 | disposition home or self-care (01) ==
PROVIDERS: PCP Family Medicine; Visit Provider Psychiatry & Neurology Neurology
DX: G35 Multiple sclerosis (principal); E55.9 Vitamin D deficiency, unspecified
CPT/HCPCS: 36415; 80053; 82652; 85025

== ENCOUNTER 2024-08-08 10:58 | Outpatient (RCR) | payer OTHER, SELFPAY ==
--- NOTE | 2024-08-14 17:38 | BUOTOPEVAL ---
Assessment and note entered by Rody Lewis OT Evaluation Information Assessment Status Evaluation Diagnosis Multiple sclerosis ICD-10 Condition Codes (OT) Generalized muscle weakness M62.81 Onset 2020 Reported Pain Level Pain Score 0: Self Report Pain Score 0: Self Report Assessment OT Clinical Summary The patient is a 44 year old female who was referred to outpatient OT due to MS. Patient previously demonstrated minimally to moderately impaired function of L UE (dominant hand), minimal balance deficits and minimal endurance deficits. At this time, the patient demonstrates significant weakness of L UE in shoulder flexors/extensors and wrist and digit extensors with minimal movements of LUE, moderately impaired endurance and balance deficits that affect patient's safety at home and completion of ADLs and IADLs. The patient's goal is to increase hand and wrist strength for ability to use hand for functional tasks, to get a lightweight wheelchair in and out of her car independently and to increase endurance for continued engagement in social and work life. The patient requires skilled OT to address deficits and improve quality of life. Plan of Care Interventions Therapeutic Exercise,Neuro Re-education, Therapeutic Activities,Electrical Stimulation, Sensory Integrative Techniques,Self-Care/Home Management,Prosthetic Training,Check Out for Orthotic/Prosthetic OT Services Indicated Yes OT Services Indicated Yes Treatment Frequency and 2x/week for 10 visits. Duration These treatments will address the objective and functional deficits as defined above. The patient will be advanced safely and appropriately in order for the patient to progress towards his/her prior level of function. Additional exercises will be introduced and as well as a comprehensive home exercise program upon discharge, if needed, to ensure carryover of functional gains achieved in the clinic. This treatment plan has been reviewed and agreement upon by the patient.
--- NOTE | 2024-08-14 17:39 | OPREHPOC ---
Outpatient Therapy Plan of Care This is a Multidisciplinary Plan of Care that may contain components documented by all disciplines (PT, OT, and ST.) OT Problem 1 OT Problem #1 Knowledge Deficit OT Goal 1 Goal / Goal Update The patient will demonstrate 100% knowledge and return demonstration of UE HEP and techniques to continue to engage in aerobic activity needed to maintain strength and endurance for progression of MS. Target Visit 10 OT Goal 1 Goal / Goal Update The patient will demonstrate increased UE strength through increased AROM of L shoulder as >25 degrees, shoulder extension at >25 degrees, shoulder abduction to >45 degrees, wrist extension to >35 degrees and wrist flexion at >40 degrees in order to utilize UE for daily tasks. Shoulder abduction: 30 degrees with compensation from upper trap Shoulder flexion: 14 degrees in sitting; 25 degrees in standing Shoulder extension: 19 degrees in standing Wrist flexion: 23 degrees Wrist extension: 30 degrees Target Visit 10 OT Goal 2 Goal / Goal Update The patient will demonstrate increased strength of L UE demonstrating L elbow flexion/extension at 4 -/5, scapular elevation at 4-/5 and shoulder abduction at 3-/5 in order to lift UE to reach to keyboard. L elbow extension: 3-/5 L scapular elevation: 3+/5 L shoulder abduction: 2-/5 Target Visit 10 OT Goal 1 Goal / Goal Update The patient will demonstrate increased fur glosser strength of L UE at >18 lbs and lateral pinch at > 3 lbs in order to grasp items for grooming. Target Visit 10 OT Goal 2 Goal / Goal Update The patient will demonstrate increased endurance through continuation of moderate difficulty aerobic activity needed to increase overall endurance for improvement in engagement in family life. Target Visit 10 OT Goal 1 Goal / Goal Update The patient will demonstrate modified independence in grooming tasks in standing while demonstrating good balance to avoid falls and maintain independence with ADLs. Target Visit 10
--- NOTE | 2024-08-22 11:46 | OPREHPOC ---
Outpatient Therapy Plan of Care This is a Multidisciplinary Plan of Care that may contain components documented by all disciplines (PT, OT, and ST.) OT Problem 1 OT Problem #1 Knowledge Deficit OT Goal 1 Goal / Goal Update The patient will demonstrate 100% knowledge and return demonstration of UE HEP and techniques to continue to engage in aerobic activity needed to maintain strength and endurance for progression of MS. Target Visit 10 OT Goal 1 Goal / Goal Update The patient will demonstrate increased UE strength through increased AROM of L shoulder as >25 degrees, shoulder extension at >25 degrees, shoulder abduction to >45 degrees, wrist extension to >35 degrees and wrist flexion at >40 degrees in order to utilize UE for daily tasks. Shoulder abduction: 30 degrees with compensation from upper trap; 25 degrees without compensation ( new) good control during upper trap restriction Shoulder flexion: 14 degrees in sitting; 25 degrees in standing, 20 degrees without compensation Shoulder extension: 21 degrees in standing Wrist flexion: 35 degrees Wrist extension: 30 degrees Target Visit 10 OT Goal 2 Goal / Goal Update The patient will demonstrate increased strength of L UE demonstrating L elbow flexion/extension at 4 -/5, scapular elevation at 4-/5 and shoulder abduction at 3-/5 in order to lift UE to reach to keyboard. L elbow flexion: 4/5 min L elbow extension: 3-/5 L scapular elevation: 4-/5 L shoulder abduction: 2-/5 without full ROM Target Visit 10 OT Goal 1 Goal / Goal Update The patient will demonstrate increased consumer affairs specialist strength of L UE at >18 lbs and lateral pinch at > 3 lbs in order to grasp items for grooming. Building Supervisor: 8.4 Lateral pinch: .5 11 Target Visit 10 OT Goal 2 Goal / Goal Update The patient will demonstrate increased endurance through continuation of moderate difficulty aerobic activity needed to increase overall endurance for improvement in engagement in family life. Target Visit 10 OT Goal 1 Goal / Goal Update The patient will demonstrate modified independence in grooming tasks in standing while demonstrating good balance to avoid falls and maintain independence with ADLs. TO ADDRESS; CONTINUE Target Visit 10
--- NOTE | 2024-08-22 11:46 | PTOPEVDC ---
Assessment and note entered by JT File, PT Thank you for referring Leslie Warren to [facility]. An evaluation has been completed. No further treatment is needed. Evaluation Information Assessment Status Progress Diagnosis WC evaluation Onset 08/10/24 Subjective Information see paper evaluation form provided with this documentation. Patient is looking to obtain a lightweight powered wheelchair for community mobility. she currently has a powered mobility scooter, but reports it is too big to load and unload into a vehicle on her own. she would like to obtain this new lightweight powered model to be able to attend all community activities with her kids. she reports currently she misses a lot due to being unable to get her chair in and out to use in the community. she has a history of MS, and suffers from L side hemiplegia that affects her ability to ambulate long distances safely. she is fearful of falling all the time. Reported Pain Level Pain Score 0: Self Report Pain Score 0: Self Report Assessment PT Clinical Summary mrs. warren would benefit from receiving a lightweight powered wheelchair to improve her community independent, safety, and quality of life . she displays a high fall risk and poor community engagement due to her current mobility level and restrictions. her evaluation will be sent to her MD and a mobility device company for further review. Plan of Care Treatment Frequency and await approval from insurance to obtain powered Duration wheel chair
--- NOTE | 2024-08-24 08:42 | BUOTOPEVAL ---
Assessment and note entered by Rody Lewis OT Evaluation Information Assessment Status Progress Diagnosis Multiple sclerosis Diagnosis Multiple sclerosis ICD-10 Condition Codes (OT) Generalized muscle weakness M62.81 Onset 2019 Reported Pain Level Pain Score 0: Self Report Pain Score 0: Self Report Pain Score 0: Self Report Pain Score 0: Self Report Pain Score 0: Self Report Pain Score 0: Self Report Assessment OT Clinical Summary The patient demonstrates minimal progress in L UE AROM with 3-5 degrees improvement for ROM of arm, although minimal improvement, progress at this time is gradual and patient demonstrates good motivation to continue. She reports that today feels that at day of progress note, it is an off day for her and that she has done better with her L arm in days prior. Due to patient's medical condition the patient can demonstrate varying levels of strength and function depending on multiple factors. She reports she has good and bad days when it comes to moving L UE but her main goal at this time is to improve strength of L UE for functional tasks such as cutting food and washing hair. She demonstrates increased endurance with reporting 3 RPE (easy) rated as exertion level after 10 minutes of minimally difficult aerobic activity. Patient demonstrates increased difficulty with raising L UE overhead in attempts to do overhead press during this assessment. The patient demonstrates no progress in water mechanic strength, digit extension of digits 2-5 for grasp/release activities, and minimal progress toward L elbow extension and shoulder flexion strength but good progress toward elbow flexion strength and decreased compensation of upper trapezius muscles for shoulder movements. She demonstrates .5 lbs increase in lateral pinch and increased active extension of L thumb needed to pinch items during ADLs. She demonstrates motivation to engage in cooking a meal for her family again. Through gradual progress toward patient's goals and function of L UE, good motivation and need for continued skilled instruction and education on adaptive equipment and techniques, the patient continues to require skilled OT to address functional use of L hand and UE, increase AROM for reaching overhead to wash hair, and increase safety when cooking meals and using B hands and increasing endurance and balance. The patient also requires continued education for self care adaptive techniques and equipment needed to maximize independence. Plan of Care Interventions Therapeutic Exercise,Manual Therapy,Neuro Re- education,Therapeutic Activities,Hot Pack/Cold Pack,Electrical Stimulation,Sensory Integrative Techniques,Self-Care/Home Management,Prosthetic Training Interventions Therapeutic Exercise,Neuro Re-education, Therapeutic Activities,Electrical Stimulation, Sensory Integrative Techniques,Self-Care/Home Management,Prosthetic Training,Check Out for Orthotic/Prosthetic OT Services Indicated Yes OT Services Indicated Yes OT Services Indicated Yes OT Services Indicated Yes Treatment Frequency and 2x/week for 10 visits. Duration These treatments will address the objective and functional deficits as defined above. The patient will be advanced safely and appropriately in order for the patient to progress towards his/her prior level of function. Additional exercises will be introduced and as well as a comprehensive home exercise program upon discharge, if needed, to ensure carryover of functional gains achieved in the clinic. This treatment plan has been reviewed and agreement upon by the patient.
--- NOTE | 2024-08-24 08:42 | OPREHPOC ---
Outpatient Therapy Plan of Care This is a Multidisciplinary Plan of Care that may contain components documented by all disciplines (PT, OT, and ST.) OT Problem 1 OT Problem #1 Knowledge Deficit OT Goal 1 Goal / Goal Update The patient will demonstrate 100% knowledge and return demonstration of UE HEP and techniques to continue to engage in aerobic activity needed to maintain strength and endurance for progression of MS. GOAL PROGRESSING; CONTINUE 08/22/2024 Target Visit 10 OT Goal 1 Goal / Goal Update The patient will demonstrate increased UE strength through increased AROM of L shoulder as >25 degrees, shoulder extension at >25 degrees, shoulder abduction to >45 degrees, wrist extension to >35 degrees and wrist flexion at >40 degrees in order to utilize UE for daily tasks. GOAL PROGRESSING; CONTINUE 08/22/2024 Shoulder abduction: 30 degrees with compensation from upper trap; 25 degrees without compensation ( new) good control during upper trap restriction Shoulder flexion: 14 degrees in sitting; 25 degrees in standing, 20 degrees without compensation Shoulder extension: 21 degrees in standing Wrist flexion: 35 degrees Wrist extension: 30 degrees Target Visit 10 OT Goal 2 Goal / Goal Update The patient will demonstrate increased strength of L UE demonstrating L elbow flexion/extension at 4 -/5, scapular elevation at 4-/5 and shoulder abduction at 3-/5 in order to lift UE to reach to keyboard. GOAL PROGRESSING; CONTINUE 08/22/2024 L elbow flexion: 3+/5 L elbow extension: 3-/5 L scapular elevation: 4-/5 L shoulder abduction: 2+/5 Target Visit 10 OT Goal 1 Goal / Goal Update The patient will demonstrate increased senior nuclear medicine technologist strength of L UE at >18 lbs and lateral pinch at > 3 lbs in order to grasp items for grooming. GOAL PROGRESSING; CONTINUE 08/22/2024 Speed Belt Sander: 8.4 Lateral pinch: .5 R pinch: 11 Target Visit 10 OT Goal 2 Goal / Goal Update The patient will demonstrate increased endurance through continuation of moderate difficulty aerobic activity reporting 3 on RPE after 15 minutes needed to increase overall endurance for improvement in engagement in family life. RPE: reported 3 as easy for 10 minutes of minimal difficulty aerobic activity; good progress GOAL PROGRESSING; UPGRADED 08/22/2024 Target Visit 10 OT Goal 1 Goal / Goal Update The patient will demonstrate modified independence in grooming tasks in standing while demonstrating good balance to avoid falls and maintain independence with ADLs. CONTINUE; PROGRESSING; 08/22/2024 Target Visit 10 OT Goal 2 Goal / Goal Update The patient will demonstrate modified independence with washing hair and cutting food needed to maximize independence for daily life as personal goal and motivation to regain independence using B UE. NEW GOAL; 08/22/2024 Target Visit 10
--- NOTE | 2024-09-17 09:48 | BUOTOPDC ---
Assessment and note entered by Rody Lewis, OT Evaluation Information Assessment Status Discharge Diagnosis Multiple Sclerosis ICD-10 Condition Codes (OT) Generalized muscle weakness M62.81 Onset 2020 Reported Pain Level Pain Score 0: Self Report Assessment OT Clinical Summary The patient demonstrates significant progress in knowledge of adaptive equipment and techniques for independence with daily tasks, UE strength and endurance leading to increased safety with ADLs and work tasks. The patient demonstrates fair to minimal progress with L UE AROM, grade setter strength, pinch strength, grooming, and cutting food due to severity of weakness of L UE and continued progress to be made with therapeutic exercise and activity. Therapist has educated patient on adaptive techniques for maintaining independence with work, grooming, cooking and dressing in order to maximize patient's independence and care for her family. Therapist educated patient that use of adaptive techniques and equipment is used to enhance her life and independence and to continue toward function and strengthening of L UE. Therapist provided patient with education on 1-UP hair tie, dycem to stabilize items when using one hand, one handed knife (rocker knife), cutting board with stabilizer, built up utensils and foam rolls, non-skid dishware. Therapist educated patient on the importance of continued exercise as well as noticing signs of excessive fatigue and when to provide body with rest. Therapist educated her on referred to MD on seeing a counselor for mental health wellbeing for referral as needed. Therapist educated her that maintaining good mental health and sleep schedules will also increase energy levels and quality of life. The patient and therapist discussed patient's insurance benefits and that she has 20 visits hard max per year, therapist educated that they used 10 and to discuss patient's continuation of OT or to discharge short period and re-evaluate closer to the end of the year. The patient chose to discontinue until later this year as she is comfortable with performing HEP at this time and wants to continue with therapy to maintain her strength and progress. The patient has been educated on HEP and adaptive techniques with good understanding. Plan of Care OT Services Indicated No
--- NOTE | 2024-09-17 09:49 | OPREHPOC ---
Outpatient Therapy Plan of Care This is a Multidisciplinary Plan of Care that may contain components documented by all disciplines (PT, OT, and ST.) OT Problem 1 OT Problem #1 Knowledge Deficit OT Goal 1 Goal / Goal Update The patient will demonstrate 100% knowledge and return demonstration of UE HEP and techniques to continue to engage in aerobic activity needed to maintain strength and endurance for progression of MS. GOAL PROGRESSED; DISCONTINUE 09/12/2024 Target Visit 10 OT Goal 1 Goal / Goal Update The patient will demonstrate increased UE strength through increased AROM of L shoulder as >25 degrees, shoulder extension at >25 degrees, shoulder abduction to >45 degrees, wrist extension to >35 degrees and wrist flexion at >40 degrees in order to utilize UE for daily tasks. GOAL PROGRESSING; DISCONTINUE 09/12/2024 PN Shoulder abduction: 30 degrees with compensation from upper trap; 25 degrees without compensation ( new) good control during upper trap restriction Shoulder flexion: 14 degrees in sitting; 25 degrees in standing, 20 degrees without compensation Shoulder extension: 21 degrees in standing Wrist flexion: 35 degrees Wrist extension: 30 degrees DISCHARGE Shoulder abduction: 30 degrees with compensation from upper trap; 25 degrees without compensation ( new) good control during upper trap restriction Shoulder flexion: 25 degrees in standing, 20 degrees without compensation Shoulder extension: 30 degrees in standing Wrist flexion: 30 degrees Wrist extension: 26 degrees Target Visit 10 OT Goal 2 Goal / Goal Update The patient will demonstrate increased strength of L UE demonstrating L elbow flexion/extension at 4 -/5, scapular elevation at 4-/5 and shoulder abduction at 3-/5 in order to lift UE to reach to keyboard. GOAL PROGRESSING; DISCONTINUE 09/12/2024 PN L elbow flexion: 3+/5 L elbow extension: 3-/5 L scapular elevation: 4-/5 L shoulder abduction: 2+/5 Discharge: L elbow flexion: 3+/5 min/mod L elbow extension: 3-/5 L scapular elevation: 5/5 L shoulder abduction: 2+/5 mat assess Target Visit 10 OT Goal 1 Goal / Goal Update The patient will demonstrate increased retread operator strength of L UE at >18 lbs and lateral pinch at > 3 lbs in order to grasp items for grooming. GOAL PROGRESSING; DISCONTINUE 09/12/2024 Litigation Legal Assistant: 8.4 Lateral pinch: .5 R pinch: 11 Litigation Legal Assistant: 8.5 Lateral pinch: .5 R pinch: 11 Target Visit 10 OT Goal 2 Goal / Goal Update The patient will demonstrate increased endurance through continuation of moderate difficulty aerobic activity reporting 3 on RPE after 15 minutes needed to increase overall endurance for improvement in engagement in family life. RPE: reported 2-3 as easy for 10 minutes of minimal difficulty aerobic activity; good progress GOAL DISCONTINUED 09/12/2024 Target Visit 10 OT Goal 1 Goal / Goal Update The patient will demonstrate modified independence in grooming tasks in standing while demonstrating good balance to avoid falls and maintain independence with ADLs. DISCONTINUE; 09/12/2024 Target Visit 10 OT Goal 2 Goal / Goal Update The patient will demonstrate modified independence with washing hair and cutting food needed to maximize independence for daily life as personal goal and motivation to regain independence using B UE. GOAL DISCONTINUED; GOOD PROGRESS using adaptive technique of built up utensil; 09/12/2024 Target Visit 10
== END 2024-09-12 20:00 | disposition home or self-care (01) ==
LOC: CHSOT 10:58
PROVIDERS: Visit Provider Psychiatry & Neurology Neurology
DX: G35 Multiple sclerosis (principal)
CPT/HCPCS: 97110; 97112; 97161; 97166; 97530; 97535

== ENCOUNTER 2025-01-23 08:53 | Outpatient (CLI) | payer OTHER, SELFPAY ==
[2025-01-23 09:15] LABS: Hematocrit 44.7 % (35.0-49.0); Hemoglobin 15.3 g/dL (12.0-15.0); Immature Granulocyte Percent A 0.3 % (0.0-0.0); Lymphocytes Absolute Auto 2.19 K/mm3 (1.10-4.50); Mean Corpuscular HGB Conc 34.2 g/dL (32-36); Mean Corpuscular Hemoglobin 32.8 pg (27.0-31.0); Mean Corpuscular Volume 95.9 fL (78.0-102.0); Nucleated Red Blood Cells Absolute Auto 0.00 K/mm3 (0.00-0.00); Nucleated Red Blood Cells Perc 0.0 % (0-0.0); Platelet Count Result 387 K/mm3 (150-420); Red Blood Count 4.66 M/mm3 (4.20-5.40); White Blood Count 9.3 K/mm3 (4.8-10.8)
--- OUTSIDE RECORDS SUMMARY | 2025-01-23 09:26 | XMS_ITS | Encounter Summary ---
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
--- OUTSIDE RECORDS SUMMARY | 2025-01-23 09:26 | XMS_ITS | Clinical Summary ---
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 Gender Identity Not on file Sexual Orientation Not on file Last Filed Vital Signs Vital Sign Reading Time Taken Comments Blood Pressure - - Pulse - - Temperature - - Respiratory Rate - - Oxygen Saturation - - Inhaled Oxygen Concentration - - Weight 79.4 kg (175 lb) 12/03/2021 8:46 AM CDT Height 172.7 cm (5' 8) 12/03/2021 8:46 AM CDT Body Mass Index 26.61 12/03/2021 8:46 AM CDT Plan of Treatment Health Maintenance Due Date Last Done Comments Cervical Cancer Screening Pap Smear (Age 30 to 64) Every 3 Years 1982 Annual Physical 1985 DTaP, Tdap and Td Vaccines (6 - Tdap) 02/12/1999 02/11/1999, 12/07/1988, 08/12/1987, Additional history exists Hepatitis C 2000 Hepatitis B Vaccines (1 of 3 - 19+ 3-dose series) 2001 Pneumococcal Vaccine: Pediatrics (0 to 5 Years) and At-Risk Patients (6 to 49 Years) (1 of 2 - PCV) 2001 HPV Vaccines (1 - 3-dose SCDM series) 2009 Cervical Cancer Screening Pap with HPV Testing (Age 30 to 64) Every 5 Years 2012 Cervical Cancer Screening with HPV 2012 Mammogram Screening 2022 COVID-19 Vaccine (2024- season) 2024 07/24/2020, 07/01/2020 Meningococcal B Vaccine Aged Out No l onger eligible based on patient's age to complete this topic Meningococcal Vaccine Aged Out No cassidy jaxson eligible based on patient's age to complete this topic RSV Immunizations Under 20 Months Aged Out No longer eligible based on patient's age to complete this topic Insurance Care Teams Reset Merchandiser Relationship Specialty Start Date End Date None, Provider, PCP - General 10/22/21
[2025-01-23 09:35] LABS: Alanine Aminotransferase 14 U/L (6-35); Albumin Level 4.5 g/dL (3.5-5.1); Alkaline Phosphatase 48 U/L (38-126); Anion Gap 8 mmol/L (4-12); Aspartate Amino Transferase 21 U/L (14-36); Bilirubin,Total 0.9 mg/dL (0.2-1.3); Blood Urea Nitrogen 8 mg/dL (7-17); Calcium 9.9 mg/dL (8.4-10.2); Carbon Dioxide 26 mmol/L (22-30); Chloride 108 mmol/L (98-107); Estimated Glomerular Filt Rate > 60; Glucose 92 mg/dL (65-110); Osmolality Calculated 292 mOsm/kg (285-295); Potassium 5.1 mmol/L (3.4-5.0); Sodium 142 mmol/L (137-145); Total Protein 8.2 g/dL (6.3-8.2)
[2025-01-28 10:08] LABS: JC Virus DNA,PCR (Whole Blood) Negative (Negative)
== END 2025-01-23 08:54 | disposition home or self-care (01) ==
LOC: CHSLAB 08:54
PROVIDERS: PCP Family Medicine; Visit Provider Psychiatry & Neurology Neurology
DX: G35 Multiple sclerosis (principal); E55.9 Vitamin D deficiency, unspecified
CPT/HCPCS: 36415; 80053; 82652; 85025; 87798

== ENCOUNTER 2025-02-20 09:30 | Outpatient (CLI) | payer OTHER, SELFPAY ==
--- NOTE | ~2025-02-20 | MM_ITS ---
EXAMINATION: MM screening mikayla BI w alexis HISTORY: Screening TECHNIQUE: Craniocaudal and mediolateral oblique 3-D tomosynthesis images were obtained and synthetic 2-D images were generated. CAD analysis was submitted and interpreted. COMPARISON: Comparison to multiple prior studies sequentially, with oldest reviewed study dated , 07/15/2022 BREAST PARENCHYMAL COMPOSITION: There are scattered areas of fibroglandular density. FINDINGS: There is no evidence of suspicious mass, calcification, or architectural distortion to suggest malignancy in either breast. IMPRESSION: 1. No mammographic evidence of malignancy. 2. Recommend routine screening mammography in one year. BI-RADS Category 1: Negative Reviewed, dictated and finalized at location B.
--- OUTSIDE RECORDS SUMMARY | 2025-02-20 10:45 | XMS_ITS | Clinical Summary ---
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 Gender Identity Not on file Sexual Orientation [...] COVID-19 Vaccine (2024- season) 2024 07/24/2020, 07/01/2020 Influenza Adult (#1) 2025 01/30/2021, 01/13/2020, 01/30/2019, Additional history exists Hepatitis A Vaccines Aged Out No long er eligible based on patient's age to complete this topic Meningococcal B Vaccine Aged Out No l onger eligible based on patient's age to complete this topic Meningococcal Vaccine Aged Out No cassidy jaxson eligible based on patient's age to complete this topic RSV Immunizations Under 20 Months Aged Out No longer eligible based on patient's age to complete this topic Insurance Care Teams Clothing Busheler Relationship Specialty Start Date End Date None, Provider, PCP - General 10/22/21
--- OUTSIDE RECORDS SUMMARY | 2025-02-20 10:45 | XMS_ITS | Encounter Summary ---
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
== END 2025-02-20 09:31 | disposition home or self-care (01) ==
LOC: CHSIMG 09:32
PROVIDERS: PCP Family Medicine; Visit Provider Registered Nurse
DX: Z12.31 Encounter for screening mammogram for malignant neoplasm of breast (principal)
CPT/HCPCS: 77063; 77067